=== PATIENT | male | born 1940 | race Caucasian/White ===

== ENCOUNTER 2020-06-06 16:16 | Outpatient (REF) | payer MEDICARE, OTHER, SELFPAY ==
[2020-06-06 17:22] LABS: MANUAL DIFF FLAG NO
[2020-06-06 17:31] LABS: Basophils Absolute Auto 0.1 X10*3/uL (0.0-0.2); Basophils Percent Auto 0.6 % (0-2); Hematocrit 28.6 % (42-52); Imm Gran Abs Auto 0.03 X10*3/uL (0.00-0.03); Imm Gran Pct Auto 0.3 % (0.0-0.4); Lymphocytes Absolute Auto 2.8 X10*3/uL (1.2-4.9); Lymphocytes Percent Auto 27.1 % (20-40); Mean Corpuscular HGB Conc 31.5 g/dl (31.0-36.0); Mean Corpuscular Hemoglobin 25.9 pg (27.0-33.0); Mean Corpuscular Volume 82.4 fL (80-98); Mean Platelet Volume 9.9 fL (9.4-12.4); Monocytes Absolute Auto 0.9 X10*3/uL (0.1-1.2); Neutrophils Absolute Auto 6.5 X10*3/uL (2.0-8.3); Platelet Count 448 X10*3/uL (160-400); Red Blood Count 3.47 X10*6/uL (4.60-5.80); Red Cell Distribution Width 17.3 % (11.0-16.0); White Blood Count 10.3 X10*3/uL (4.8-10.8)
[2020-06-06 18:00] LABS: Alanine Aminotransferase 31 U/L (0-40); Albumin Level 3.3 g/dL (3.5-5.0); Alkaline Phosphatase 89 U/L (39-117); Anion Gap 16 (12-20); Aspartate Amino Transferase 25 U/L (5-37); Bilirubin Total 0.5 mg/dL (0.0-1.0); Blood Urea Nitrogen 32 mg/dL (9-16); Carbon Dioxide 18 mmol/L (22-29); Chloride 107 mmol/L (96-108); Estimated Glomerular Filt Rate 41; Glucose Random 89 mg/dL (60-115); Potassium 4.7 mmol/L (3.3-5.1); Sodium 136 mmol/L (135-145); Total Protein 6.1 g/dL (6.5-8.0)
[2020-06-07 14:11] LABS: Beta-2 Microglobulin, Serum 7.97 mg/L (< OR = 2.51)
[2020-06-07 18:36] LABS: Kappa Light Chain, Free Serum 160.6 mg/L (3.3-19.4); Kappa/Lambda Lt Ch Free Ratio 8.15 (0.26-1.65); Lambda Light Chain, Free Serum 19.7 mg/L (5.7-26.3)
[2020-06-07 22:11] LABS: PES - Abn Protein Band 1 0.5 g/dL (NONE DETECTED); Prot Elec - Albumin 2.9 g/dL (3.8-4.8); Prot Elec - Alpha1 0.5 g/dL (0.2-0.3); Prot Elec - Alpha2 1.1 g/dL (0.5-0.9); Prot Elec - Beta 1 0.4 g/dL (0.4-0.6); Prot Elec - Beta 2 0.4 g/dL (0.2-0.5); Prot Elec - Gamma 0.8 g/dL (0.8-1.7); Prot Elec - Total Protein 6.1 g/dL (6.1-8.1)
[2020-06-08 15:17] LABS: IgA 180 mg/dL (70-320); IgG 967 mg/dL (600-1540); IgM 9 mg/dL (50-300)
[2020-06-08 16:02] LABS: Kappa, Serum 274 mg/dL (176-443); Kappa/Lambda Ratio, Serum 3.81 (1.29-2.55); Lambda, Serum 72 mg/dL (91-240)
== END 2020-06-06 16:17 | disposition home or self-care (01) ==
LOC: HO.LAB 16:16
PROVIDERS: Visit Provider Internal Medicine Medical Oncology
DX: C90.00 Multiple myeloma not having achieved remission (principal)
CPT/HCPCS: 36415; 80053; 82232; 82784; 83520; 83883; 84155; 84165; 85025; 86334

== ENCOUNTER 2020-12-22 15:39 | Outpatient (REF) | payer MEDICARE, OTHER, SELFPAY ==
[2020-12-22 16:00] LABS: MANUAL DIFF FLAG NO
[2020-12-22 16:04] LABS: Basophils Percent Auto 0.2 % (0-2); Hematocrit 29.3 % (42-52); Hemoglobin 9.3 g/dl (14.0-18.0); Imm Gran Abs Auto 0.11 X10*3/uL (0.00-0.03); Imm Gran Pct Auto 0.8 % (0.0-0.4); Lymphocytes Absolute Auto 2.3 X10*3/uL (1.2-4.9); Lymphocytes Percent Auto 16.5 % (20-40); Mean Corpuscular HGB Conc 31.7 g/dl (31.0-36.0); Mean Corpuscular Hemoglobin 27.1 pg (27.0-33.0); Mean Corpuscular Volume 85.4 fL (80-98); Mean Platelet Volume 9.1 fL (9.4-12.4); Monocytes Absolute Auto 0.9 X10*3/uL (0.1-1.2); Monocytes Percent Auto 6.2 % (2-11); Neutrophils Absolute Auto 10.6 X10*3/uL (2.0-8.3); Neutrophils Percent Auto 76.3 % (45-73); Platelet Count 675 X10*3/uL (160-400); Red Blood Count 3.43 X10*6/uL (4.60-5.80); Red Cell Distribution Width 16.9 % (11.0-16.0); White Blood Count 13.8 X10*3/uL (4.8-10.8)
[2020-12-22 16:44] LABS: Alanine Aminotransferase 89 U/L (0-40); Albumin Level 3.1 g/dL (3.5-5.0); Alkaline Phosphatase 111 U/L (39-117); Anion Gap 15 (12-20); Aspartate Amino Transferase 21 U/L (5-37); Bilirubin Total 0.7 mg/dL (0.0-1.0); Blood Urea Nitrogen 38 mg/dL (9-16); Calcium 8.9 mg/dL (8.4-10.2); Carbon Dioxide 17 mmol/L (22-29); Chloride 109 mmol/L (96-108); Estimated Glomerular Filt Rate 36; Glucose Random 115 mg/dL (60-115); Potassium 4.3 mmol/L (3.3-5.1); Sodium 137 mmol/L (135-145)
== END 2020-12-22 15:40 | disposition home or self-care (01) ==
LOC: HO.LAB 15:39
PROVIDERS: PCP Internal Medicine Medical Oncology; Visit Provider Internal Medicine Medical Oncology
DX: I10 Essential (primary) hypertension (principal); R63.6 Underweight
CPT/HCPCS: 36415; 80053; 85025

== ENCOUNTER 2021-02-19 15:29 | Emergency (ER) | payer MEDICARE, OTHER, SELFPAY ==
--- NOTE | ~2021-02-19 | NM_ITS ---
EXAMINATION: NM LUNG IMAGE PERFUSION CLINICAL INFORMATION: Multiple myeloma. On chemotherapy. Shortness of breath. Elevated d-dimer. COMPARISON: Chest x-ray 02/19/2021 TECHNIQUE: 2.6 mCi MAA was given for perfusion. Multiple images then performed. No ventilation was performed. Findings compared with chest x-ray of 02/19/2021, 4:00 PM FINDINGS: Homogeneous perfusion of the right and left lung. No defects to suggest pulmonary embolism. NM/NM pul perfusion IMPRESSION: Normal lung perfusion study. No evidence of pulmonary embolism.
--- NOTE | ~2021-02-19 | XR_ITS ---
EXAMINATION: XR CHEST CLINICAL INFORMATION: Shortness of breath COMPARISON: None TECHNIQUE: Frontal view of the chest was obtained. FINDINGS: The patient is rotated to the left. The cardiac silhouette is upper normal in size. There is mitral annular calcification. The thoracic aorta is calcified. Hilar and mediastinal contours are otherwise unremarkable. There is increased density over the left upper lobe. This is probably related to superimposition of the left anterior first rib and scapula. The lungs are otherwise clear. There is no pleural effusion or pneumothorax. There are are old right posterior rib fractures. There are degenerative changes of the shoulders and spine. XR/XR chest 1V IMPRESSION: No evidence for acute disease in the chest.
[2021-02-19 15:36] VITALS: BP 124/58; PULSE 100
[2021-02-19 15:39] VITALS: BP 124/70; PULSE 98; RESP 18; TEMP 36.8; O2SAT 98; BMI 15.2
--- NOTE | 2021-02-19 15:52 | ECG_ITS ---
Test Reason : SOB Blood Pressure : / mmHG Vent. Rate : 098 BPM Atrial Rate : 098 BPM P-R Int : 214 ms QRS Dur : 070 ms QT Int : 358 ms P-R-T Axes : 071 023 026 degrees QTc Int : 457 ms Sinus rhythm with 1st degree A-V block with Premature atrial complexes Nonspecific ST abnormality Borderline ECG No previous ECGs available Referred By: Brenda Blair Electronically Signed By:SATYA JACOBO MD
[2021-02-19 16:22] LABS: Basophils Percent Auto 0.2 % (0-2); Hematocrit 29.7 % (42.0-52.0); Hemoglobin 9.2 g/dl (14.0-18.0); Imm Gran Abs Auto 0.14 X10*3/uL (0.00-0.03); Imm Gran Pct Auto 0.8 % (0.0-0.4); Lymphocytes Absolute Auto 1.8 X10*3/uL (1.2-4.9); Lymphocytes Percent Auto 10.8 % (20-40); MANUAL DIFF FLAG SCAN; Mean Corpuscular Hemoglobin 27.8 pg (27.0-33.0); Mean Corpuscular Volume 89.7 fL (80.0-98.0); Mean Platelet Volume 10.6 fL (9.4-12.4); Monocytes Absolute Auto 1.8 X10*3/uL (0.1-1.2); Monocytes Percent Auto 10.5 % (2-11); Neutrophils Absolute Auto 13.2 x10*3/uL (2.0-8.3); Neutrophils Percent Auto 77.7 % (45-73); Platelet Count 265 X10*3/uL (160-400); Red Blood Count 3.31 X10*6/uL (4.60-5.80); Red Cell Distribution Width 18.5 % (11.0-16.0); SCAN SMEAR FLAG 1
[2021-02-19 16:22] LABS: VBG Base Excess -9.2 mmol/L; VBG HCO3 16 mmol/L (22-26); VBG pCO2 33 mmHg; VBG pH 7.28 (7.32-7.43); VBG pO2 40 mmHg
[2021-02-19 16:26] LABS: Venous Blood Gas Refer to POC result
[2021-02-19 16:37] LABS: Alanine Aminotransferase 47 U/L (0-40); Albumin Level 3.1 g/dL (3.5-5.0); Alkaline Phosphatase 97 U/L (39-117); Anion Gap 15 (12-20); Aspartate Amino Transferase 21 U/L (5-37); Bilirubin Total 0.6 mg/dL (0.0-1.0); Blood Urea Nitrogen 43 mg/dL (9-16); Calcium 8.1 mg/dL (8.4-10.2); Carbon Dioxide 16 mmol/L (22-29); Chloride 106 mmol/L (96-108); Creatinine Clr Calc Pharmacy 21.9; Estimated Glomerular Filt Rate 39; Glucose Random 129 mg/dL (60-115); Magnesium 1.7 mg/dL (1.6-2.6); Potassium 3.7 mmol/L (3.3-5.1); Sodium 133 mmol/L (135-145); Total Protein 5.8 g/dL (6.5-8.0)
[2021-02-19 16:39] LABS: D Dimer 2491 NG/ML
--- NOTE | 2021-02-19 16:41 | ED.SOB ---
HPI - SOB/Dyspnea General Chief Complaint: Dyspnea Stated Complaint: GENERAL WEAKNESS,HX OF CHEMO Time Seen by Provider: 02/19/21 15:44 Source: patient and EMS Mode of arrival: EMS Limitations: no limitations History of Present Illness HPI Narrative: 80-year-old male with a past medical history of multiple myeloma who is currently on chemo and was due for chemotherapy today being treated in [facility] per patient presenting to the ED via EMS where he lives at with his with complaints of generalized weakness, decreased p.o. intake, shortness of breath without any chest pain and dark foul-smelling urine that he reports started today. He denies any dizziness, headaches, neck pain/stiffness, chest pain, dyspnea on exertion, orthopnea, palpitations, nausea/vomiting/diarrhea, constipation, abdominal pain, back pain, rashes, dysuria, hematuria, abnormal penile discharge, black or bloody stools, recent travel or sick contacts, cough, sore throat, fevers or any other symptoms complaints or concerns at this time. MD elicited complaint: shortness of breath Pertinent past history: other (Multiple myeloma) Onset (ago): day(s) (Today) Timing: constant Severity: mild Exacerbating factors: nothing Relieving factors: nothing Known history of: other (Multiple myeloma) Associated symptoms: denies other symptoms Treatment prior to arrival: none Related Data Home oxygen amount: none Allergies Allergy/AdvReac Type Severity Reaction Status Date / Time No Known Allergies Allergy Verified 02/19/21 15:52 Review of Systems Review of Systems: Constitutional : No Weight loss, No Fever, No Chills, No Night Sweats, No Fatigue, No Malaise ENT/Mouth : No Hearing loss, No Ear Pain, No Nasal Congestion, No Sinus Pain, No Hoarseness, No sore throat, No Rhinorrhea, No Swallowing Difficulty Eyes: No Eye Pain, No Swelling, No Redness, No Foreign Body, No Discharge, No Vision Changes Cardiovascular : + SOB, No Chest Pain, No Dyspnea on Exertion, No Orthopnea, No Edema, No Palpitations Respiratory : No Cough, No Sputum, No Wheezing, No Smoke Exposure, No Dyspnea Gastrointestinal : + decreased PO intake, No Nausea, No Vomiting, No Diarrhea, No Constipation, No abdominal Pain, No Hematochezia, No Melena Genitourinary : + dark/foul-smelling urine, no irregular bleeding, No Dysuria, No Urinary Frequency, No Hematuria, No Urinary Incontinence, No Urgency, No Flank Pain, No Urinary Flow Changes, No Hesitancy Musculoskeletal : No joint pain, No Myalgias, No Joint Swelling Skin : No Skin Lesions, No rash Neuro : + general Weakness, No Focal weakness, No Numbness, No Paresthesias, No Loss of Consciousness, No Dizziness, No Headache Psych : No Anxiety/Panic, No Depression, No SI/HI/AH/VH, No Social Issues, Heme/Lymph: No Bruising, No Bleeding,No Lymphadenopathy Endocrine : No Polyuria, No Polydipsia, No Temperature Intolerance Yes all other systems are reviewed and are negative [facility]LY [facility] Past Medical History Attestation statement: The following information was validated with the patient. Medical History Hypertension Social History Social History Smoked in Last 30 Days: No Use of substances other than those prescribed or required for medical reasons: No Advance Directives: No Advance Directives Information Provided: Yes Physical Exam Vital Signs: Vital Signs: Last Vital Signs Temp 99.8 F 02/19/21 17:19 Pulse 107 H 02/19/21 17:19 Resp 20 02/19/21 17:19 BP 136/74 02/19/21 17:19 Pulse Ox 98 02/19/21 17:19 Body Mass Index 15.2 vital signs have been reviewed as normal and appeared to be correct. Blood pressure normal. Heart rate normal. Respiration rate normal. Temperature normal. Oxygen saturation normal. Appearance: Alert. Oriented X3. No acute distress. Head: Normal external exam. Normocephalic. Atraumatic. Eyes: PERRLA. EOMI. Conjunctiva and sclera normal. Eyelids normal. ENT: EAC normal. TM's Normal. Pharynx normal. Uvula midline. Moist mucous membranes. No trismus noted. No drooling noted. No muffled voice noted. Neck: Normal inspection. Neck supple. FROM. No adenopathy. Thyroid Normal. No meningeal signs. No neck mass noted. CVS: Normal heart rate and rhythm. Heart sound normal. Pulses normal throughout. No murmurs/rales/gallops. Respiratory: No respiratory distress. Painless inspiration. Breath sounds normal. No wheezes/rales/rhonchi noted. Chest nontender. No accessory muscle usage noted or decreased air movement noted. Abdomen: Soft and nontender. Bowel sounds normal in all 4 quadrants. No distention noted. No organomegaly noted. No visible injury noted. Back: No CVA tenderness. Full range of motion noted. No rashes/lesion/induration/fluctuance or signs of infection noted. Skin: Skin warm and dry. Normal skin color. Normal skin turgor. No rashes/lesions/lacerations noted. Extremities: No lower extremity edema. Extremities exhibit normal range of motion. Extremities nontender. Neuro: Oriented X 3. No motor deficit. No sensory deficit. Reflexes normal. Gait not tested. No focal neuro deficits noted. Vascular: + radial pulses/+ 2 distal pedal pulses/+2 dorsalis pedis b/l. Normal cap refill. No cyanosis noted to upper extremity nails and lower extremity toes nails. Course Course Course Narrative: 15:55pm - 80-year-old male with a past medical history of multiple myeloma who is currently on chemo and was due for chemotherapy today being treated in [facility] per patient presenting to the ED via EMS where he lives at with his with complaints of generalized weakness, decreased p.o. intake, shortness of breath without any chest pain and dark foul-smelling urine that he reports started today. Plan: Labs, blood cultures, lactic acid, UA, chest x-ray, EKG, COVID/RSV/flu then re-evaluate. Reevaluation(s) Reevaluation #1: - labs reviewed patient [place] [address]. Baseline anemia similar when compared to prior. Platelet count is normal. D-dimer 2491. VBG revealed a pH is 7.28 and a bicarb of 16 otherwise rested the VBG is within normal limits which is consistent with the primary metabolic acidosis with normal anion gap with full respiratory compensation. Sodium 133. BUN/creatinine 43/1.69 this is similar when compared to prior. Random glucose 129. ALT 47. Improved when compared to prior. Troponin 55. No comparisons therefore repeat in 3 hours. BNP 259. Total protein 5.8. Albumin 3.1. Lactic acid 3.2. UA within normal limits no evidence of UTI under revealed blood. COVID/RSV/flu is negative. Chest x-ray normal sinus rhythm no acute ischemic changes although no prior EKGs to compare to in our system. Chest x-ray negative for pneumonia or any other acute processes. - therefore I ordered a L of IV fluids, 1 g of Rocephin, V/Q scan to evaluate for possible PE and a repeat troponin at 19:00 will re-evaluate. Time: 18:05 Reevaluation #2: now at bedside reports that the has been receiving chemotherapy and he started the beginning of this month and he is on a course for 21 days where he takes his Revlimid and is currently on dexamethasone as well. Reports that he has also been having black colored diarrhea for the past 2 days. She reports her is a poor historian. Time: 18:59 Reevaluation #3: - I was waiting for the V/Q scan and patient got very upset that is loud in the ER and that another patient was screaming that she wanted oxycodone she reports that that patient is not sick and she does not understand why we do not throw that patient out of the ER because her is really sick and she is not going to deal with this she wants to take the patient against medical advice she put him in the wheelchair and dressed him I tried to go in there to convince him and her to keep him here and I explained the risk that he can if he has a blood clot in that I wanted to admit him and the is very adamant that she is taking him she already has them dressed in the wheelchair she is very upset because it is too loud in this ER per the patient's . Time: 20:44 MDM - SOB/Dyspnea Medical Records Attestation: I reviewed the patient's medical records. Lab Data Attestation: I reviewed the patient's lab results. Result diagrams: 02/19/21 16:11 02/19/21 16:11 Labs: Lab Results 02/19/21 02/19/21 02/19/21 Range/Units 16:11 16:11 16:11 WBC 17.0 H (4.8-10.8) X10*3/uL RBC 3.31 L (4.60-5.80) X10*6/uL Hgb 9.2 L (14.0-18.0) g/dl Hct 29.7 L (42.0-52.0) % MCV 89.7 (80.0-98.0) fL MCH 27.8 (27.0-33.0) pg MCHC 31.0 (31.0-36.0) g/dl RDW 18.5 H (11.0-16.0) % Plt Count 265 (160-400) X10*3/uL MPV 10.6 (9.4-12.4) fL Immature Gran % (Auto) 0.8 H (0.0-0.4) % Neut % (Auto) 77.7 H (45-73) % Lymph % (Auto) 10.8 L (20-40) % [place] % (Auto) 10.5 (2-11) % Eos % (Auto) 0.0 (0-4) % Baso % (Auto) 0.2 (0-2) % Lymph # (Auto) 1.8 (1.2-4.9) X10*3/uL [place] # (Auto) 1.8 H (0.1-1.2) X10*3/uL Eos # (Auto) 0.0 (0.0-0.4) X10*3/uL Baso # (Auto) 0.0 (0.0-0.2) X10*3/uL Abs Immat Gran (auto) 0.14 H (0.00-0.03) X10*3/uL Absolute Neuts (auto) 13.2 H (2.0-8.3) x10*3/uL Absolute Nucleated RBC 0.000 (0.0-0.012) X10*3/uL Nucleated RBC % (auto) 0.0 (0.0-0.2) /100WBC Smear Tech's Comments VERIFIED Hold Purple Top PT (9.9-13.0) SEC INR (0.9-1.1) D-Dimer NG/ML VBG pH (7.32-7.43) VBG pCO2 mmHg VBG pO2 mmHg VBG HCO3 (22-26) mmol/L VBG O2 Saturation % VBG Base Excess mmol/L Sodium 133 L (135-145) mmol/L Potassium 3.7 (3.3-5.1) mmol/L Chloride 106 (96-108) mmol/L Carbon Dioxide 16 L (22-29) mmol/L Anion Gap 15 (12-20) BUN 43 H (9-16) mg/dL Creatinine 1.69 H (0.5-1.4) mg/dL Estim Creat Clear Calc 21.9 Estimated GFR 39 Random Glucose 129 H (60-115) mg/dL Lactic Acid (0.5-2.0) mmol/L Lactic Acid Fup @ 2Hr (0.5-2.0) mmol/L Calcium 8.1 L D (8.4-10.2) mg/dL Magnesium 1.7 (1.6-2.6) mg/dL Total Bilirubin 0.6 (0.0-1.0) mg/dL AST 21 (5-37) U/L ALT 47 H (0-40) U/L Alkaline Phosphatase 97 (39-117) U/L Troponin I High Sens 55.0 H* (<3.5-35.0) ng/L B-Natriuretic Peptide 259 H (<100) pg/mL Total Protein 5.8 L (6.5-8.0) g/dL Albumin 3.1 L (3.5-5.0) g/dL Urine Color Urine Appearance Urine pH (5.0-8.0) Ur Specific [place] (1.005-1.025) Urine Protein (NEG-TRACE) MG/DL Urine Glucose (UA) (NEG) MG/DL Urine Ketones (NEG) MG/DL Urine Blood (NEG) Urine Nitrite (NEG) Ur Leukocyte Esterase (NEG) Urine RBC (0) /HPF Urine WBC (0-4) /HPF Ur Squamous Epith Cells /LPF Urine Bacteria /LPF Influenza Type A (PCR) (Negative) Influenza Type B (PCR) (Negative) RSV RNA Qual (PCR) (Negative) SARS-CoV-2 RNA (RT-PCR) (Negative) 02/19/21 02/19/21 02/19/21 Range/Units 16:11 16:11 16:12 WBC (4.8-10.8) X10*3/uL RBC (4.60-5.80) X10*6/uL Hgb (14.0-18.0) g/dl Hct (42.0-52.0) % MCV (80.0-98.0) fL MCH (27.0-33.0) pg MCHC (31.0-36.0) g/dl RDW (11.0-16.0) % Plt Count (160-400) X10*3/uL MPV (9.4-12.4) fL Immature Gran % (Auto) (0.0-0.4) % Neut % (Auto) (45-73) % Lymph % (Auto) (20-40) % [place] % (Auto) (2-11) % Eos % (Auto) (0-4) % Baso % (Auto) (0-2) % Lymph # (Auto) (1.2-4.9) X10*3/uL [place] # (Auto) (0.1-1.2) X10*3/uL Eos # (Auto) (0.0-0.4) X10*3/uL Baso # (Auto) (0.0-0.2) X10*3/uL Abs Immat Gran (auto) (0.00-0.03) X10*3/uL Absolute Neuts (auto) (2.0-8.3) x10*3/uL Absolute Nucleated RBC (0.0-0.012) X10*3/uL Nucleated RBC % (auto) (0.0-0.2) /100WBC Smear Tech's Comments Hold Purple Top SEE NOTE PT 14.6 H (9.9-13.0) SEC INR 1.3 H (0.9-1.1) D-Dimer 2491 NG/ML VBG pH (7.32-7.43) VBG pCO2 mmHg VBG pO2 mmHg VBG HCO3 (22-26) mmol/L VBG O2 Saturation % VBG Base Excess mmol/L Sodium (135-145) mmol/L Potassium (3.3-5.1) mmol/L Chloride (96-108) mmol/L Carbon Dioxide (22-29) mmol/L Anion Gap (12-20) BUN (9-16) mg/dL Creatinine (0.5-1.4) mg/dL Estim Creat Clear Calc Estimated GFR Random Glucose (60-115) mg/dL Lactic Acid (0.5-2.0) mmol/L Lactic Acid Fup @ 2Hr (0.5-2.0) mmol/L Calcium (8.4-10.2) mg/dL Magnesium (1.6-2.6) mg/dL Total Bilirubin (0.0-1.0) mg/dL AST (5-37) U/L ALT (0-40) U/L Alkaline Phosphatase (39-117) U/L Troponin I High Sens (<3.5-35.0) ng/L B-Natriuretic Peptide (<100) pg/mL Total Protein (6.5-8.0) g/dL Albumin (3.5-5.0) g/dL Urine Color Urine Appearance Urine pH (5.0-8.0) Ur Specific [place] (1.005-1.025) Urine Protein (NEG-TRACE) MG/DL Urine Glucose (UA) (NEG) MG/DL Urine Ketones (NEG) MG/DL Urine Blood (NEG) Urine Nitrite (NEG) Ur Leukocyte Esterase (NEG) Urine RBC (0) /HPF Urine WBC (0-4) /HPF Ur Squamous Epith Cells /LPF Urine Bacteria /LPF Influenza Type A (PCR) NEGATIVE (Negative) Influenza Type B (PCR) NEGATIVE (Negative) RSV RNA Qual (PCR) NEGATIVE (Negative) SARS-CoV-2 RNA (RT-PCR) NEGATIVE (Negative) 02/19/21 02/19/21 02/19/21 Range/Units 16:12 16:16 17:35 WBC (4.8-10.8) X10*3/uL RBC (4.60-5.80) X10*6/uL Hgb (14.0-18.0) g/dl Hct (42.0-52.0) % MCV (80.0-98.0) fL MCH (27.0-33.0) pg MCHC (31.0-36.0) g/dl RDW (11.0-16.0) % Plt Count (160-400) X10*3/uL MPV (9.4-12.4) fL Immature Gran % (Auto) (0.0-0.4) % Neut % (Auto) (45-73) % Lymph % (Auto) (20-40) % [place] % (Auto) (2-11) % Eos % (Auto) (0-4) % Baso % (Auto) (0-2) % Lymph # (Auto) (1.2-4.9) X10*3/uL [place] # (Auto) (0.1-1.2) X10*3/uL Eos # (Auto) (0.0-0.4) X10*3/uL Baso # (Auto) (0.0-0.2) X10*3/uL Abs Immat Gran (auto) (0.00-0.03) X10*3/uL Absolute Neuts (auto) (2.0-8.3) x10*3/uL Absolute Nucleated RBC (0.0-0.012) X10*3/uL Nucleated RBC % (auto) (0.0-0.2) /100WBC Smear Tech's Comments Hold Purple Top PT (9.9-13.0) SEC INR (0.9-1.1) D-Dimer NG/ML VBG pH 7.28 L (7.32-7.43) VBG pCO2 33 mmHg VBG pO2 40 mmHg VBG HCO3 16 L (22-26) mmol/L VBG O2 Saturation 54.0 % VBG Base Excess -9.2 mmol/L Sodium (135-145) mmol/L Potassium (3.3-5.1) mmol/L Chloride (96-108) mmol/L Carbon Dioxide (22-29) mmol/L Anion Gap (12-20) BUN (9-16) mg/dL Creatinine (0.5-1.4) mg/dL Estim Creat Clear Calc Estimated GFR Random Glucose (60-115) mg/dL Lactic Acid 3.2 H* (0.5-2.0) mmol/L Lactic Acid Fup @ 2Hr (0.5-2.0) mmol/L Calcium (8.4-10.2) mg/dL Magnesium (1.6-2.6) mg/dL Total Bilirubin (0.0-1.0) mg/dL AST (5-37) U/L ALT (0-40) U/L Alkaline Phosphatase (39-117) U/L Troponin I High Sens (<3.5-35.0) ng/L B-Natriuretic Peptide (<100) pg/mL Total Protein (6.5-8.0) g/dL Albumin (3.5-5.0) g/dL Urine Color YELLOW Urine Appearance CLEAR Urine pH 6.0 (5.0-8.0) Ur Specific [place] 1.020 (1.005-1.025) Urine Protein TRACE (NEG-TRACE) MG/DL Urine Glucose (UA) NEG (NEG) MG/DL Urine Ketones NEG (NEG) MG/DL Urine Blood 2+ H (NEG) Urine Nitrite NEG (NEG) Ur Leukocyte Esterase NEG (NEG) Urine RBC 5-9 H (0) /HPF Urine WBC 0-2 (0-4) /HPF Ur Squamous Epith Cells 1+ /LPF Urine Bacteria 1+ /LPF Influenza Type A (PCR) (Negative) Influenza Type B (PCR) (Negative) RSV RNA Qual (PCR) (Negative) SARS-CoV-2 RNA (RT-PCR) (Negative) 02/19/21 02/19/21 Range/Units 18:53 18:53 WBC (4.8-10.8) X10*3/uL RBC (4.60-5.80) X10*6/uL Hgb (14.0-18.0) g/dl Hct (42.0-52.0) % MCV (80.0-98.0) fL MCH (27.0-33.0) pg MCHC (31.0-36.0) g/dl RDW (11.0-16.0) % Plt Count (160-400) X10*3/uL MPV (9.4-12.4) fL Immature Gran % (Auto) (0.0-0.4) % Neut % (Auto) (45-73) % Lymph % (Auto) (20-40) % [place] % (Auto) (2-11) % Eos % (Auto) (0-4) % Baso % (Auto) (0-2) % Lymph # (Auto) (1.2-4.9) X10*3/uL [place] # (Auto) (0.1-1.2) X10*3/uL Eos # (Auto) (0.0-0.4) X10*3/uL Baso # (Auto) (0.0-0.2) X10*3/uL Abs Immat Gran (auto) (0.00-0.03) X10*3/uL Absolute Neuts (auto) (2.0-8.3) x10*3/uL Absolute Nucleated RBC (0.0-0.012) X10*3/uL Nucleated RBC % (auto) (0.0-0.2) /100WBC Smear Tech's Comments Hold Purple Top PT (9.9-13.0) SEC INR (0.9-1.1) D-Dimer NG/ML VBG pH (7.32-7.43) VBG pCO2 mmHg VBG pO2 mmHg VBG HCO3 (22-26) mmol/L VBG O2 Saturation % VBG Base Excess mmol/L Sodium (135-145) mmol/L Potassium (3.3-5.1) mmol/L Chloride (96-108) mmol/L Carbon Dioxide (22-29) mmol/L Anion Gap (12-20) BUN (9-16) mg/dL Creatinine (0.5-1.4) mg/dL Estim Creat Clear Calc Estimated GFR Random Glucose (60-115) mg/dL Lactic Acid (0.5-2.0) mmol/L Lactic Acid Fup @ 2Hr 1.0 (0.5-2.0) mmol/L Calcium (8.4-10.2) mg/dL Magnesium (1.6-2.6) mg/dL Total Bilirubin (0.0-1.0) mg/dL AST (5-37) U/L ALT (0-40) U/L Alkaline Phosphatase (39-117) U/L Troponin I High Sens 56.6 H* (<3.5-35.0) ng/L B-Natriuretic Peptide (<100) pg/mL Total Protein (6.5-8.0) g/dL Albumin (3.5-5.0) g/dL Urine Color Urine Appearance Urine pH (5.0-8.0) Ur Specific [place] (1.005-1.025) Urine Protein (NEG-TRACE) MG/DL Urine Glucose (UA) (NEG) MG/DL Urine Ketones (NEG) MG/DL Urine Blood (NEG) Urine Nitrite (NEG) Ur Leukocyte Esterase (NEG) Urine RBC (0) /HPF Urine WBC (0-4) /HPF Ur Squamous Epith Cells /LPF Urine Bacteria /LPF Influenza Type A (PCR) (Negative) Influenza Type B (PCR) (Negative) RSV RNA Qual (PCR) (Negative) SARS-CoV-2 RNA (RT-PCR) (Negative) Imaging Data Chest x-ray: Attestation: I personally reviewed and interpreted this imaging study as follows: Radiologist's impression: FINDINGS: The patient is rotated to the left. The cardiac silhouette is upper normal in size. There is mitral annular calcification. The thoracic aorta is calcified. Hilar and mediastinal contours are otherwise unremarkable. There is increased density over the left upper lobe. This is probably related to superimposition of the left anterior first rib and scapula. The lungs are otherwise clear. There is no pleural effusion or pneumothorax. There are are old right posterior rib fractures. There are degenerative changes of the shoulders and spine. XR/XR chest 1V IMPRESSION: No evidence for acute disease in the chest. ECG Data Attestation: I personally reviewed and interpreted this ECG as follows: ECG interpretation date: 02/19/21 ECG interpretation time: 04:17 Interpretation: Sinus rhythm with first-degree AV block with premature atrial complexes with a ventricular rate of 98 normal QRS normal QT/QTC interval. No acute ischemic change are noted. No prior EKGs to compare to in our system at this time. Critical Care Time Critical Care Time Critical Care Time: Yes Total Critical Care Time: 60 Attestation: I personally attest to this time spent taking care of the patient Discharge Plan Discharge Clinical Impression: Metabolic acidosis, normal anion gap (NAG), General weakness, Left against medical advice Patient Disposition: Left Against Medical Advice Instructions: Against Medical Advice (ED) Referrals: Physician,Unknown J [Primary Care Provider] - 2 days (your pcp) Interventions: ED Discharge Assessment Last Done: 02/19/21 20:48 Discharge Date/Time: 02/19/21 20:49 Print Language: Irish
[2021-02-19 16:46] LABS: B Type Natriuretic Peptide 259 pg/mL (<100)
[2021-02-19 16:48] LABS: SLIDE REVIEW VERIFIED
[2021-02-19 16:50] LABS: Lactic Acid 3.2 mmol/L (0.5-2.0)
[2021-02-19 16:59] LABS: Influenza A PCR NEGATIVE (Negative); Influenza B PCR NEGATIVE (Negative); Resp Syncy Virus RNA Qual PCR NEGATIVE (Negative); SARS COV2 PCR INHOUSE NEGATIVE (Negative)
[2021-02-19] MEDS: 0.9 % Sodium Chloride 1,000 ML 999 ML IVCONT (17:10)
[2021-02-19] MEDS: cefTRIAXone sodium 1 GM in 0.9 % Sodium Chloride 50 ML IV (17:11)
[2021-02-19 17:19] VITALS: BP 136/74; PULSE 107; RESP 20; TEMP 37.7; O2SAT 98
[2021-02-19 17:48] LABS: Appearance Urine CLEAR; Color Urine YELLOW; Glucose Urine UA NEG (NEG); Leukocyte Esterase Urine NEG (NEG); Nitrite Urine NEG (NEG); UACC Culture Trigger NO; Urine Blood 2+ (NEG); Urine Ketones NEG (NEG); Urine Protein TRACE MG/DL (NEG-TRACE)
[2021-02-19 17:58] LABS: Bacteria Urine 1+ /LPF; Squamous Epithelial Cell Urine 1+ /LPF; WBC Urine 0-2 /HPF (0-4)
[2021-02-19 18:17] LABS: Reflex Lactate? Lactic Acid Added
[2021-02-19 18:35] LABS: INTERNATIONAL NORM RATIO 1.3 (0.9-1.1); Prothrombin Time 14.6 SEC (9.9-13.0)
[2021-02-19 19:22] LABS: Troponin-I High Sensitivity 56.6 ng/L (<3.5-35.0)
--- NOTE | 2021-02-19 20:27 | PC.NURSE ---
PT'S IS GETTING PT DRESSED AND IS TAKING HIM OUT. PT IS DRESSED. PA IN ROOM ARGUING WITH PT'S REGARDING PT GETTING LEAVING AGAINST MEDICAL ADVISE AND TELLING PT HOW DANGEROUS IT IS FOR THE PT TO LEAVE AGAINST MEDICAL ADVISE. PT IS NOT LISTENING TO OUR ADVISE ABOUT GETTING PT ADMITTED. IS PUTTING PT IN W/C AND TAKING HIM AGAINST MEDICAL ADVISE TO WR.
--- NOTE | 2021-02-19 20:43 | PC.NURSE ---
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 REMOVED [place] CATH AND REMOVED IV FROM PT'S ARM. PT LEFT ED IN W/C W/O DISTRESS.
== END 2021-02-19 20:49 | disposition left against medical advice (07) ==
PROVIDERS: Physician Assistant Medical; Emergency Provider Emergency Medicine
DX: R53.1 Weakness (principal); E87.2 Acidosis; D64.9 Anemia, unspecified; C90.00 Multiple myeloma not having achieved remission; Z20.822 Contact with and (suspected) exposure to COVID-19
CPT/HCPCS: 0241U; 36415; 71045; 78580; 80053; 81001; 82803; 83605; 83735; 83880; 84484; 85025; 85379; 85610; 87040; 93005; 96361; 96365; 99284; 99291; A9540; J0696